=== PATIENT | male | born 1990 | race Caucasian/White ===

== ENCOUNTER 2024-07-25 08:30 | Outpatient (RCR) | payer OTHER, SELFPAY ==
--- NOTE | 2024-04-29 16:25 | MHC.OT.EP ---
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 Thank you once again for your referral.
--- NOTE | 2024-04-29 16:26 | MHC.OT.OEV ---
[address] [phone] F: [phone] Occupational Therapy Evaluation Patient Name: Black Taylor Diagnosis: R wrist pain w/ debridement of 1st DC, and ganglion cyst removal (radial side of wrist) Date of Onset: 03/17/20 Date of Surgery: 01/21/24 Attending Provider: Nini Diana Prescribed Treatment: Follow Up Appointment: History of Current Condition: Pt is a 33 yr. 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 His IO was an injury to his R shoulder and R radial wrist drop. Pt attended therapy and was able to regain AROM of his wrist/ hand. He continued to report pain and discomfort to the radial side of his wrist and hand. Pt saw Dr. Diaz who dx him w/ De Quervain's tenosynovitis and was treated w/ cortisone shots and therapy. When therapy did not help pt had surgery to remove a ganglion cyst and debride the 1st DC on . Pt saw therapy which was helping; but the therapists who originally were helping him left the company. [place] then [place] [facility] [place] 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 Living Situation, Family and/or Social Support: Pt lives w/ his and two children in there house in [place] Current Level of Function and Occupation Self Care, Employment, Leisure: Pt is on 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 for the [employer] he cannot return to full duty until 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) Sleep: Driving: Vision: Balance: Pain Assessment Pain Score: 5 Pain Scale Used: Numeric (0 - 10) Pain Location and Description: Radial R wwrist and FA Aggravating Factors: Alleviating Factors: Skin and Soft Tissue Assessment Skin and Soft Tissue: Comments: Pt has STR along the dorsal and volar sides of his FA / wrist and hand Small scar along radial side of wrist: remodeling phase light pink ; no concerns Nerve assessment Ulnar Nerve: WNL Median Nerve: WNL Radial Nerve: Comments: Sensory Assessment Temperature: WNL Light Touch: WNL Proprioception: Vibration: Comments: Edema Assessment Upper Extremity: Lower Extremity: Comments: Dexterity Assessment Dexterity: Comments: Special Tests Comments: AROM(PROM) Strength Cervical Cervical Flexion: Cervical Extension: Cervical Lateral Flexion: Cervical Rotation: Comments: Shoulder Flexion: Extension: Abduction: Internal Rotation: External Rotation: Comments: Flexion: Extension: Abduction: Internal Rotation: External Rotation: Comments: Elbow Flexion: Extension: Pronation: Supination: Comments: Flexion: Extension: Pronation: Supination: Comments: Wrist Flexion: Extension: Ulnar Deviation: Radial Deviation: Comments: WNL Flexion: Extension: Ulnar Deviation: Radial Deviation: Comments: Thumb Thumb CMC Flexion: Thumb MCP Flexion: Thumb IP Flexion: Radial Abduction: Palmar Abduction: [place] (Kapandji 0-10): 1 cm away from opposing distal tip of thumb to SF volar plate Comments: Digits Index MCP: PIP: DIP: Long MCP: PIP: DIP: Ring MCP: PIP: DIP: Small MCP: PIP: DIP: Comments: WNL Gross Grasp: R: 80 lbs L 140 lbs Lateral Pinch: R: 21 lbs L: 29 lbs Two-Point Pinch: R: 12 lbs L 23 lbs Three-Jaw Peter: R;19lbs L 21 lbs Comments: Patient Education Primary Language: Thread Grinder Required: No Current Knowledge: Understands information with skills for self-management Teaching Method: Audio/Video Demonstration Handouts Education Needs Identified on Evaluation: ADL's Disease Information Exercise Pain How did patient/family demonstrate learning? Patient demonstrates Barriers to Learning: None Readiness for Learning: Accepting Who was educated? 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 Pt will RTW w/out restrictions Pt will report 0/10 pain Frequency and Duration: The patient will be seen 2 xs a week for 6 weeks Treatment Plan: Therapeutic Exercise Therapeutic Activity Home Exercise Program Splinting Neuro Re-ed Patient Education Desensitization/Sensory Re-ed Edema Control ADL Training Ultrasound NMES Iontophoresis Paraffin Fluidotherapy MHP Cold Packs Joint Mobilization Soft Tissue Mobilization Kinesiotaping Other (see comments) Electronically Signed By: Claire Shankar OTR/L Reviewed/agree with student documentation: N/A Therapist: Please sign and return to therapist, Thank you for your referral.
--- NOTE | 2024-04-29 16:27 | MHC.OT.OEV ---
[address] [phone] F: [phone] Occupational Therapy Evaluation Patient Name: Black Taylor Diagnosis: R wrist pain w/ debridement of 1st DC, and ganglion cyst removal (radial side of wrist) Date of Onset: 03/17/20 Date of Surgery: 01/21/24 Attending Provider: Nini Diana Prescribed Treatment: Follow Up Appointment: History of Current Condition: Pt is a 33 yr. 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 His IO was an injury to his R shoulder and R radial wrist drop. Pt attended therapy and was able to regain AROM of his wrist/ hand. He continued to report pain and discomfort to the radial side of his wrist and hand. Pt saw Dr. Diaz who dx him w/ De Quervain's tenosynovitis and was treated w/ cortisone shots and therapy. When therapy did not help pt had surgery to remove a ganglion cyst and debride the 1st DC on . Pt saw therapy which was helping; but the therapists who originally were helping him left the company. He then was referred [place] [facility] [place] 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 Living Situation, Family and/or Social Support: Pt lives w/ his and two children in there house in [place] Current Level of Function and Occupation Self Care, Employment, Leisure: Pt is on 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 for the [employer] 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 return to 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) Sleep: Driving: Vision: Balance: Pain Assessment Pain Score: 5 Pain Scale Used: Numeric (0 - 10) Pain Location and Description: Radial R wwrist and FA Aggravating Factors: Alleviating Factors: Skin and Soft Tissue Assessment Skin and Soft Tissue: Comments: Pt has STR along the dorsal and volar sides of his FA / wrist and hand Small scar along radial side of wrist: remodeling phase light pink ; no concerns Nerve assessment Ulnar Nerve: WNL Median Nerve: WNL Radial Nerve: Comments: Sensory Assessment Temperature: WNL Light Touch: WNL Proprioception: Vibration: Comments: Edema Assessment Upper Extremity: Lower Extremity: Comments: Dexterity Assessment Dexterity: Comments: Special Tests Comments: AROM(PROM) Strength Cervical Cervical Flexion: Cervical Extension: Cervical Lateral Flexion: Cervical Rotation: Comments: Shoulder Flexion: Extension: Abduction: Internal Rotation: External Rotation: Comments: Flexion: Extension: Abduction: Internal Rotation: External Rotation: Comments: Elbow Flexion: Extension: Pronation: Supination: Comments: Flexion: Extension: Pronation: Supination: Comments: Wrist Flexion: Extension: Ulnar Deviation: Radial Deviation: Comments: WNL Flexion: Extension: Ulnar Deviation: Radial Deviation: Comments: Thumb Thumb CMC Flexion: Thumb MCP Flexion: Thumb IP Flexion: Radial Abduction: Palmar Abduction: [place] (Kapandji 0-10): 1 cm away from opposing distal tip of thumb to SF volar plate Comments: Digits Index MCP: PIP: DIP: Long MCP: PIP: DIP: Ring MCP: PIP: DIP: Small MCP: PIP: DIP: Comments: WNL Gross Grasp: R: 80 lbs L 140 lbs Lateral Pinch: R: 21 lbs L: 29 lbs Two-Point Pinch: R: 12 lbs L 23 lbs Three-Jaw Peter: R;19lbs L 21 lbs Comments: Patient Education Primary Language: Glazier Stained Glass Required: No Current Knowledge: Understands information with skills for self-management Teaching Method: Audio/Video Demonstration Handouts Education Needs Identified on Evaluation: ADL's Disease Information Exercise Pain How did patient/family demonstrate learning? Patient demonstrates Barriers to Learning: None Readiness for Learning: Accepting Who was educated? Patient Comments: Plan of Care Assessment: STG Duration: 3 weeks Short Term Goals: Pt will be compliant w/ HEP Pt will demonstrate a good understanding of use of modalities Pt will report 2/10 pain LTG Duration: 6 weeks Hotel Clerk Goals: Pt will increase R hand clinical safety specialist to 100 lbs Pt will RTW w/out restrictions Pt will report 0/10 pain Frequency and Duration: The patient will be seen 2 xs a week for 6 weeks Treatment Plan: Therapeutic Exercise Therapeutic Activity Home Exercise Program Splinting Neuro Re-ed Patient Education Desensitization/Sensory Re-ed Edema Control ADL Training Ultrasound NMES Iontophoresis Paraffin Fluidotherapy MHP Cold Packs Joint Mobilization Soft Tissue Mobilization Kinesiotaping Other (see comments) Electronically Signed By: Claire Shankar OTR/L Reviewed/agree with student documentation: N/A Therapist: Please sign and return to therapist, Thank you for your referral.
--- NOTE | 2024-04-29 16:27 | MHC.OT.EP ---
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 Thank you once again for your referral.
== END 2024-07-25 09:55 | disposition home or self-care (01) ==
LOC: HO.OT 08:30
PROVIDERS: Visit Provider Physician Assistant Medical
DX: M67.431 Ganglion, right wrist (principal); M65.4 Radial styloid tenosynovitis [de Quervain]
CPT/HCPCS: 97110; 97112; 97140; 97166; 97535